=== PATIENT | female | born 1980 | race Two or more races ===

== ENCOUNTER 2023-12-30 11:46 | Emergency (ER) | payer MEDICAID, OTHER ==
[~2023-12-30] VITALS: Ht 157.5 cm; Wt 89.7 kg
[2023-12-30 13:03] LABS: Urine Bacteria FEW /hpf (None Seen); Urine Blood Negative /uL (Negative); Urine Clarity Clear (Clear); Urine Color Yellow (Yellow); Urine Mucus FEW (None Seen); Urine Protein, UAD Negative (Negative); Urine Specific Gravity 1.026 (1.001-1.035); Urine Urobilinogen Normal (Negative); Urine WBC 1 /hpf (0 - 5); Urine pH 5.5 (5.0-9.0)
[2023-12-30] MEDS: KETOROLAC TROMETH 60MG/2ML VIAL IM ONE (13:07)
[2023-12-30 14:10] LABS: Basophils # (auto) 0 10 ^3/uL (0-0.2); Basophils % (auto) 0.4 % (0.0-2.0); Eosinophils # (auto) 0.1 10 ^3/uL (0-0.8); Eosinophils % (auto) 1.1 % (0.0-7.0); Hematocrit 40.6 % (36.0-46.0); Hemoglobin 13.4 g/dL (12.2-16.2); Lymphocytes # (auto) 3.3 10 ^3/uL (0.4-5.4); Lymphocytes % (auto) 29.5 % (10.0-50.0); Mean Corpuscular Hemoglobin 29.6 pg (28.0-32.0); Mean Corpuscular Volume 89.6 fL (80.0-100.0); Monocytes # (auto) 0.9 10 ^3/uL (0-1.3); Monocytes % (auto) 7.7 % (0.0-12.0); Neutrophils # (auto) 6.8 10 ^3/uL (1.6-8.6); Neutrophils % (auto) 61.3 % (37.0-80.0); Platelet Count (auto) 387 10^3/uL (140-450); Red Blood Cells 4.53 10^6/uL (4.0-5.20); Red Cell Distribution Width 12.9 % (11.8-14.3); White Blood Cell 11.1 10^3/uL (4.4-10.8)
[2023-12-30 14:16] LABS: Chloride 106 mmol/L (98-107); Potassium 3.9 mmol/L (3.5-5.1); Sodium 138 mmol/L (136-145)
[2023-12-30 14:17] LABS: Anion Gap 6 (5-15); Calcium 9.5 mg/dL (8.7-10.4); Carbon Dioxide 26 mmol/L (20-31)
[2023-12-30 14:22] LABS: Blood Urea Nitrogen 8 mg/dL (9-23); Glucose 85 mg/dL (74-106)
[2023-12-30] MEDS ORDERED: IBUP-1454 PO (18:00)
[2023-12-30] MEDS ORDERED: ACET650T12 PO (18:00)
[2023-12-30] MEDS: ACETAMINOPHEN 500 MG TAB PO ONE (18:07)
[2023-12-30 18:11] VITALS: BP 126/87; PULSE 83; RESP 20; TEMP 98.2; O2SAT 98
[2023-12-31 14:06] LABS: Chlamydia Trachomatis, NAA Negative (Negative); Neisseria gonorrhoeae, NAA Negative (Negative)
== END 2023-12-30 18:13 | disposition home or self-care (01) ==
LOC: ER 11:46
DX: N83.202 Unspecified ovarian cyst, left side (principal); R10.2 Pelvic and perineal pain; D25.9 Leiomyoma of uterus, unspecified; I10 Essential (primary) hypertension; E11.9 Type 2 diabetes mellitus without complications
CPT/HCPCS: 36415; 76830; 76856; 80048; 81001; 84702; 85025; 87491; 87591; 96372; 99285; J1885

== ENCOUNTER 2024-01-01 15:32 | Inpatient (IN) | payer MEDICAID ==
[~2024-01-01] VITALS: Ht 157.5 cm; Wt 92.6 kg
[2024-01-01 01:00] VITALS: BP 105/71; PULSE 67; RESP 17; TEMP 97.8; O2SAT 96
[~2024-01-01 15:32] MED LIST: ACET650T12 PO; IBUP-1454 PO
--- NOTE | 2024-01-01 15:45 | ED.PDOC ---
History of Present Illness HPI Comments 43-year-old female came to the ER complaining of abdominal pain 11/09 for the past two days. She was seen in this ER on the for which she was discharged for possible urinary tract infection. Only pain medication was given. She later went to a hospital in [place] because her pain got worse. She does not remember her diagnosis that was given in [facility]. She comes back today stating that her pain is getting worse. No radiation of the pain. Denies nausea vomiting. History of hypertension diabetes. Denies any other symptoms. Time Seen by MD: 15:34 Reviewed Notes: Nurses Notes, Medications, Allergies Home Meds Active Scripts Ibuprofen (Ibuprofen) 600 Mg Tab, 1 TAB PO TID PRN for 5 Days, #15 TAB Prov:BLAINE STONE MD 12/30/23 Acetaminophen (Acetaminophen Er) 650 Mg Tab, 650 MG PO TIDP PRN for 5 Days, #15 TAB Prov:BLAINE STONE MD 12/30/23 Information Source: Patient Mode of Arrival: Ambulatory Severity: Moderate Timing: Days Duration: Since onset Past Medical History PAST MEDICAL HISTORY: DM, HTN Surgical History: Denies all surgeries PHD INTERNSHIP History: No Pertinent PHD INTERNSHIP History Family History Family History: Reviewed,noncontributory to illness, No family hx of Cancer, No family hx of DM, No family hx of Heart tala, No family hx of HTN, No family hx ofKidney tala, No family hx of Liver tala, No family hx of Lung tala, No family hx of Stroke Social History Smoker: Non-Smoker Alcohol: Denies ETOH Use Drugs: Denies Drug Use Lives In: Home Constitutional: denies: chills, diaphoresis, fatigue, fever, malaise, sweats, weakness, others EENTM: denies: blurred vision, double vision, ear bleeding, ear discharge, ear drainage, ear pain, ear ringing, eye pain, eye redness, hearing loss, mouth pain, mouth swelling, nasal discharge, nose bleeding, nose congestion, nose pain, photophobia, tearing, throat pain, throat swelling, voice changes, others Respiratory: denies: cough, hemoptysis, orthopnea, SOB at rest, shortness of breath, SOB with excertion, stridor, wheezing, others Cardiovascular: denies: chest pain, dizzy spells, diaphoresis, Dyspnea on exertion, edema, irregular heart beat, left arm pain, lightheadedness, palpitations, PND, syncope, others Gastrointestinal: reports: abdominal pain; denies: abdomen distended, blood streaked bowels, constipated, diarrhea, dysphagia, difficulty swallowing, hematemesis, melena, nausea, poor appetite, poor fluid intake, rectal bleeding, rectal pain, vomiting, others Genitourinary: denies: abnormal vagina bleeding, burning, dyspareunia, dysuria, flank pain, frequency, hematuria, incontinence, pain, , vagina discharge, urgency, others Neurological: denies: dizziness, fainting, headache, left sided numbness, left sided weakness, numbness, paresthesia, pre-existing deficit, right sided nu mbness, right sided weakness, seizure, speech problems, tingling, tremors, weakness, others Musculoskeletal: denies: back pain, gout, joint pain, joint swelling, muscle pain, muscle stiffness, neck pain, others Integumetry: denies: bruises, change in color, change in hair/nails, dryness, laceration, lesions, lumps, rash, wounds, others Allergic/Immunocompromised: denies: Difficulty Healing, Frequent Infections, Hives, Itching, others Hematologic/Lymphatic: denies: anemia, blood clots, easy bleeding, easy bruising, swollen glands, others Endocrine: denies: excessive hunger, excessive sweating, excessive thirst, excessive urination, flushing, intolerance to cold, intolerance to heat, unexplained weight gain, unexplained weight loss, others Psychiatric: denies: anxiety, bipolar disorder, depression, hopeless, panic disorder, schizophrenia, sleepless, suicidal, others Physical Exam General Appearance: Moderate Distress HEENT: Normal ENT Inspection, Pharynx Normal, TMs Normal Neck: Full Range of Motion, Non-Tender, Normal, Normal Inspection Respiratory: Chest Non-Tender, Lungs Clear, No Accessory Muscle Use, No Respiratory Distress, Normal Breath Sounds Cardiovascular: No Edema, No JVD, No Murmur, No Gallop, Normal Peripheral Pulses, Regular Rate/Rhythm Breast Exam: Deferred Gastrointestinal: No Organomegaly, No Pulsatile Mass, Normal Bowel Sounds, Soft Genitalia: Deferred Pelvic: Deferred Rectal: Deferred Extremities: No calf tenderness, Normal capillary refill, Normal inspection, Normal range of motion, Non-tender, No pedal edema Musculoskeletal : Apperance: Normal Neurologic: Alert, marine technician II-XII nml as Tested, No Motor Deficits, Normal Affect, Normal Mood, No Sensory Deficits Cerebellar Function: Normal Reflexes: Normal Skin: Dry, Normal Color, Warm Peripheral Pulses: 3+ Radial (R), 3+ Radial (L) Lymphatic: No Adenopathy Was a procedure done? Was a procedure done?: No Differential Dx Considerations may include: Colitis Electrolyte imbalance X-Ray, Labs, Meds, VS Patient alert. Complaining of abdominal pain. Vitals stable. Answering all questions. Abdomen is soft. Reviewed her previous visit. Her previous visit WBC was elevated. No sign of urinary tract infection at that time. Ultrasound was done which showed fibroid. Nothing to do for the fiber at the present moment. Denies bleeding. Her symptom at this time mainly is abdominal. Explained to the patient. Time of 1ST Reevaluation: 15:43 Reevaluation 1ST: Unchanged Patient Education/Counseling: Diagnosis, Treatment, Prognosis Family Education/Counseling: No Family Present Departure 1 Departure Time of Disposition: 15:44 Impression: Primary Impression: Nonspecific colitis Additional Impressions: Uterine fibroid Qualified Codes: D25.9 - Leiomyoma of uterus, unspecified Ovarian cyst Qualified Codes: N83.209 - Unspecified ovarian cyst, unspecified side Disposition: ADMITTED INPATIENT Admit to: Med Surg Condition: Guarded Critical Care Note Critical Care Time?: No Stability Stability form required: No Heart Score Heart Score: Heart Score Response (Comments) Value History N/A 0 EKG N/A 0 Age N/A 0 Risk Factors N/A 0 Troponin N/A 0 Total 0 AB MARIE MD Jan 01, 2024 15:45
[2024-01-01 15:54] LABS: Basophils # (auto) 0.1 10 ^3/uL (0-0.2); Basophils % (auto) 0.6 % (0.0-2.0); Eosinophils # (auto) 0.2 10 ^3/uL (0-0.8); Eosinophils % (auto) 1.7 % (0.0-7.0); Hematocrit 40.1 % (36.0-46.0); Hemoglobin 13.6 g/dL (12.2-16.2); Lymphocytes # (auto) 3.5 10 ^3/uL (0.4-5.4); Lymphocytes % (auto) 36.5 % (10.0-50.0); Mean Corpuscular Hemoglobin 30.4 pg (28.0-32.0); Mean Corpuscular Hgb Conc. 33.8 g/dL (32.0-36.0); Mean Corpuscular Volume 89.9 fL (80.0-100.0); Monocytes # (auto) 0.9 10 ^3/uL (0-1.3); Monocytes % (auto) 9.1 % (0.0-12.0); Neutrophils % (auto) 52.1 % (37.0-80.0); Nucleated Red Blood Cells % 0.1 %; Platelet Count (auto) 390 10^3/uL (140-450); Red Blood Cells 4.46 10^6/uL (4.0-5.20); Red Cell Distribution Width 12.9 % (11.8-14.3); White Blood Cell 9.6 10^3/uL (4.4-10.8)
[2024-01-01 16:03] LABS: Chloride 105 mmol/L (98-107); Potassium 4.5 mmol/L (3.5-5.1); Sodium 139 mmol/L (136-145)
[2024-01-01 16:04] LABS: Anion Gap 5 (5-15); Carbon Dioxide 29 mmol/L (20-31)
[2024-01-01 16:05] LABS: Calcium 10.1 mg/dL (8.7-10.4)
[2024-01-01 16:09] LABS: BUN/Creatinine Ratio 15.2 (10.0-20.0); Blood Urea Nitrogen 10 mg/dL (9-23); Glucose 127 mg/dL (74-106)
[2024-01-01 16:46] LABS: Urine Bacteria None Seen /hpf (None Seen)
[2024-01-01 16:52] LABS: Urine Blood Negative /uL (Negative); Urine Clarity Clear (Clear); Urine Color Light-Yellow (Yellow); Urine Protein, UAD Negative (Negative); Urine Specific Gravity 1.016 (1.001-1.035); Urine Urobilinogen Normal (Negative); Urine WBC 1 /hpf (0 - 5); Urine pH 6.5 (5.0-9.0)
--- NOTE | 2024-01-01 18:21 | DVH ---
Exam: CT CT AB PEL WO CON-NO ORAL OR IV History: colitis Comparison Study: None available at time of dictation. TECHNIQUE: Multidetector CT of the abdomen was performed from lung bases to pubic symphysis. Imaging was performed without IV contrast. Axial, coronal and sagittal multiplanar reformats were obtained fr om the axial data set by the technologist. Radiation Dose Information: CT Dose: CTDI volume is 18.95 mGy. Dose-length product is 1015.92 mGy*cm FINDINGS: Evaluation of solid organs is limited due to lack of intravenous contrast use. Findings: Lung Bases: No acute or significant lung base finding. Normal heart size. No pleural or pericardial effusion. Liver: The liver is enlarged, measuring 19.6 cm in craniocaudal dimension. No focal lesions. Gallbladder and Biliary Tree: Unremarkable Spleen: Unremarkable Pancreas: The pancreas is grossly normal in appearance. Adrenal Glands: Unremarkable Kidneys: Kidneys are grossly normal without calculi or hydronephrosis. Bladder: Grossly unremarkable for degree of distention. Bowel: The stomach is grossly normal in appearance. Small bowel and colon are normal in caliber and d istribution. The appendix is normal. Ascites: Absent Lymphadenopathy: No mesenteric, retroperitoneal or periportal lymphadenopathy. Abdominal Wall and Mesentery: Tiny fat containing umbilical hernia. Vasculature: The visualized abdominal aorta is normal in size and caliber. Evaluation of abdominal a nd pelvic vessels is limited due to lack of intravenous contrast. Pelvic Organs: Unremarkable Musculoskeletal: No aggressive focal bony lesions, acute fractures or dislocation. Chronic bilateral L5 pars defects. Soft tissues: Unremarkable IMPRESSION: 1. No acute abdominal or pelvic finding. 2. Chronic bilateral L5 pars defects. Radiation optimization: All CT scans at this facility use at least one of these dose optimization te chniques: automated exposure control mA and/or kV adjustment per patient size (includes targeted exa ms where dose is matched to clinical indication) or iterative reconstruction. HS:Y
[2024-01-01] MEDS: MORPHINE SULFATE 4 MG/ML SYR/VIAL IV ONE (20:00)
[2024-01-01] MEDS: ONDANSETRON HCL 4 MG/2 ML VIAL IV ONE (20:00)
[2024-01-01] MEDS ORDERED: ONDANSETRON HCL 4 MG/2 ML VIAL IV PRN (20:30)
[2024-01-01] MEDS ORDERED: NITROGLYCERIN 0.4 MG SL TAB SL PRN (20:30)
[2024-01-01] MEDS ORDERED: HYDROcodone-ACET 5/325MG TAB PO PRN (20:30)
[2024-01-01] MEDS ORDERED: MORPHINE SULFATE INJ 2 MG/ml SYRG IV PRN (20:30)
[2024-01-01] MEDS ORDERED: ACETAMINOPHEN 325 MG TAB PO PRN (20:30)
[2024-01-01] MEDS: SODIUM CHLORIDE 0.9% 1,000 ML IV SCH (20:48)
[2024-01-01] MEDS: SODIUM CHLOR 0.9% PF (SALINE LOCK) 10ML VIAL/SYR IV SCH (21:22)
--- NOTE | 2024-01-01 22:41 | DVHHPRES ---
History of Present Illness Resident Creating Document: BRENDA KAMARA RESIDENT History of Present Illness This is a 43-year-old female with past medical history of hypertension, type 2 diabetes mellitus, chronic back pain presented to the ED with a chief complaint of lower abdominal pain and chills for 2 days prior to this admission. According to the patient the pain is colicky in nature 09/08 started from lower abdomen and radiates up to the epigastrium and associated with chills and burning sensation in the urine. Her last menstrual period was one month ago urine test came back negative. Patient denies chest pain, shortness of breath, dizziness, diaphoresis, nausea, vomiting or any change in bowel and bladder habit. She also denies recent travel history or any sick contact. Cardiovascular: HTN Endocrine: Diabetes Past Medical History Hypertension, type 2 diabetes mellitus, chronic back pain Past Surgical History None Family History Significant history of colon cancer and coronary artery disease in the family Smoke: No ALCOHOL: none Drugs: None Lives: with Family Review of Systems Constitutional: Yes: Chills; No: Fever, Sweats, Weakness, Malaise, Other Eyes: No: Pain, Vision change, Conjunctivae inflammation, Eyelid inflammation, Other, Redness ENT: No: Ear pain, Ear discharge, Nose pain, Nose discharge, Nose congestion, Mouth pain, Mouth swelling, Throat pain, Throat swelling, Other Respiratory: No: Cough, Dry, Shortness of breath, SOB with excertion, Wheezing, Hemoptysis, Pleuritic Pain, Sputum, Wheezing, Other Cardiovascular: No: Chest Pain, Palpitations, Orthopnea, Paroxysmal Noc. Dyspnea, Edema, Lt Headedness, Other Gastrointestinal: Abdominal Pain; No: Nausea, Vomiting, Diarrhea, Constipation, Melena, Hematochezia, Other Genitourinary: Dysuria; No Frequency, No Incontinence, No Hematuria, No Retention, No Other Musculoskeletal: No: other, neck pain, shoulder pain, arm pain, back pain, hand pain, leg pain, foot pain Skin: No: Rash, Lesions, Jaundice, Bruising, Other Neurological: No: Weakness, Numbness, Incoordination, Change in speech, Confusion, Seizures, Other Allergies: Coded Allergies: NO KNOWN ALLERGIES (Unverified , 01/01/24) Medications Current Medications Medications Dose Ordered Sig/Scott Route Start Time Stop Time Status Last Admin Dose Admin Sodium Chloride 10 ml Q8HR IV 01/01/24 22:00 01/01/24 21:22 10 ML Sodium Chloride 1,000 ml @ 75 mls/hr [id number] IV 01/01/24 20:30 01/01/24 20:48 75 MLS/HR Acetaminophen 325 mg Q4HP PRN PO 01/01/24 20:30 Acetaminophen/ Hydrocodone Bitart 1 tab Q4HP PRN PO 01/01/24 20:30 Ondansetron HCl 4 mg Q4HP PRN IV 01/01/24 20:30 Morphine Sulfate 2 mg Q4HPRN PRN IV 01/01/24 20:30 Nitroglycerin 0.4 mg Q5MINP PRN SL 01/01/24 20:30 Morphine Sulfate 2 mg Q30M PRN IV 01/01/24 20:30 Exam Vital Signs Vital Signs Date Time Temp Pulse Resp B/P (MAP) Pulse Ox O2 Delivery O2 Flow Rate FiO2 01/01/24 20:46 98.6 73 16 121/72 (88) 98 98.6 01/01/24 20:04 Room Air 01/01/24 19:35 0 21 General Appearance: Alert, Oriented X3, Cooperative, mild distress HEENT: Atraumatic, PERRLA, EOMI, Mucous membr. moist/pink Respiratory: Clear to auscultation, Normal air movement Cardiovascular: Regular rate, Normal S1, Normal S2, No murmurs, Gallops Abdominal: Normal bowel sounds, Soft, No hepatospenomegaly, No masses (Is mildly tender in the umbilical region and the epigastrium) Extremities: Other (Abdomen is mildly tender in the umbilical region and the epigastrium) Skin: No rashes, No breakdown, No significant lesion Neuro: Normal gait, Normal speech, Strength at 5/5 X4 ext, Normal tone, Sensation intact Psych/Mental Status: Mental status NL, Mood NL Labs/Xrays Labs Test 01/01/24 21:00 01/01/24 16:00 01/01/24 15:45 Range/Units POC Glucose 99 70-106 mg/dl Urine Color Light-yellow Yellow Urine Clarity Clear Clear Urine pH 6.5 5.0-9.0 Urine Specific [place] 1.016 1.001-1.035 Urine Protein Negative Negative Urine Ketones Negative Negative Urine Blood Negative Negative /uL Urine Nitrite Negative Negative Urine Bilirubin Negative Negative Urine Urobilinogen Normal Negative mg/dL Urine Leukocyte Esterase Negative Negative /uL Urine RBC 1 0 - 4 /hpf Urine WBC 1 0 - 5 /hpf Urine Squamous Epithelial Cells Few <5 /hpf Urine Bacteria None seen None Seen /hpf Urine Glucose Normal Normal mg/dL White Blood Count 9.6 4.4-10.8 10^3/uL Red Blood Count 4.46 4.0-5.20 10^6/uL Hemoglobin 13.6 12.2-16.2 g/dL Hematocrit 40.1 36.0-46.0 % Mean Corpuscular Volume 89.9 80.0-100.0 fL Mean Corpuscular Hemoglobin 30.4 28.0-32.0 pg Mean Corpuscular Hemoglobin Concent 33.8 32.0-36.0 g/dL Red Cell Distribution Width 12.9 11.8-14.3 % Platelet Count 390 140-450 10^3/uL Mean Platelet Volume 6.2 L 6.9-10.8 fL Neutrophils (%) (Auto) 52.1 37.0-80.0 % Lymphocytes (%) (Auto) 36.5 10.0-50.0 % Monocytes (%) (Auto) 9.1 0.0-12.0 % Eosinophils (%) (Auto) 1.7 0.0-7.0 % Basophils (%) (Auto) 0.6 0.0-2.0 % Neutrophils # (Auto) 5.0 1.6-8.6 10 ^3/uL Lymphocytes # (Auto) 3.5 0.4-5.4 10 ^3/uL Monocytes # (Auto) 0.9 0-1.3 10 ^3/uL Eosinophils # (Auto) 0.2 0-0.8 10 ^3/uL Basophils # (Auto) 0.1 0-0.2 10 ^3/uL Nucleated Red Blood Cells 0.1 % Sodium Level 139 136-145 mmol/L Potassium Level 4.5 3.5-5.1 mmol/L Chloride Level 105 98-107 mmol/L Carbon Dioxide Level 29 20-31 mmol/L Anion Gap 5 5-15 Blood Urea Nitrogen 10 9-23 mg/dL Creatinine 0.66 0.550-1.02 mg/dL Glomerular Filtration Rate Calc 113 >90 mL/min BUN/Creatinine Ratio 15.2 10.0-20.0 Serum Glucose 127 H 74-106 mg/dL Calcium Level 10.1 8.7-10.4 mg/dL Assessment/Plan Assessment/Plan Assessment and plan: # Intractable abdominal pain - Clear liquid diet - CT abdomen pelvis revealed normal study - IV normal saline at 75 mL/hour - IV morphine 2 mg q.4 p.r.n. - IV ondansetron 4 mg q.4 p.r.n. # Abdominal pain likely due to submucosal fibroid/ Ovarian cyst - Pelvic ultrasound on 12/30/23 revealed heterogeneous uterus with hyperechoic mass measuring 1.2 cm which could represent a fibroid and 1.5 cm left ovarian cyst - Consulted OBGYN. # Type 2 diabetes mellitus - mild sliding scale of insulin # Chronic back pain - Mart 5/325 mg q.4 p.r.n. Goal of care discussed with the patient for more than 20 minutes full code Plan of treatment discussed with Dr. Mendez Plan discussed with: Patient, Other My Orders Orders - BRENDA KAMARA RESIDENT Procedure Category Date Status Time Admit ADMIT 01/01/24 Transmitted 20:30 Allergies CHRISTOPHER 01/01/24 In Process 20:30 Code Status CODE 01/01/24 Transmitted 20:30 Sodium Chloride Lock PHA 01/01/24 In Process (Saline Lock Ns) 22:00 Sodium Chloride 0.9% PHA 01/01/24 In Process 20:30 Oxygen Per Hour RT 01/01/24 Transmitted 20:30 Acetaminophen Tablet PHA 01/01/24 In Process (Tylenol Tablet) 20:30 Hydrocodone-Acet PHA 01/01/24 In Process 5/325mg Tab (Mart 20:30 Ondansetron Hcl PHA 01/01/24 In Process (Zofran) 20:30 Complete Blood Count LAB 01/02/24 Verified 04:00 Comprehensive LAB 01/02/24 Verified Metabolic Panel 04:00 Clear Liq Diet DIET 01/02/24 Transmitted Breakfast Morphine Sulfate PHA 01/01/24 In Process Injection 20:30 Nitroglycerin PHA 01/01/24 In Process Sublingual (Ntrostat 20:30 Morphine Sulfate PHA 01/01/24 In Process Injection 20:30 Oxygen By Nasal RT 01/01/24 Transmitted Cannula 20:30 Stat Ekg For Chest CHRISTOPHER 01/01/24 In Process Pain 20:30 Notify Of Changes CHRISTOPHER 01/01/24 In Process From Base 20:30 [employer]crete Products Machine Operator For [facility] 01/01/24 In Process 24 Hours 20:30 Emergency Dysrhythmia [facility] 01/01/24 In Process Protocol 20:30 Rhythm Strips Once [facility] 01/01/24 In Process Every Shift 20:30 Thyroid Stimulating LAB 01/01/24 Logged Hormone 21:56 Hemoglobin A1c LAB 01/01/24 Logged 21:56 Vitamin B12 LAB 01/01/24 Logged 21:56 Vitamin D, 25-Hydroxy LAB 01/01/24 Logged 21:56 Date of Service: Jan 01, 2024 Billing Provider: KIRILL MENDEZ MD Common Visit Codes: [id number] INP/OBS CARE (HIGH) BRENDA KAMARA RESIDENT Jan 01, 2024 22:41 KIRILL MENDEZ MD Jan 05, 2024 09:23
[2024-01-02] VITALS (8 sets, daily range): BP systolic 102–142; BP diastolic 60–78; PULSE 63–80; RESP 18–20; TEMP 97.4–98.7; O2SAT 95–97
[2024-01-02] MEDS: MORPHINE SULFATE INJ 2 MG/ml SYRG IV PRN (00:51)
[2024-01-02] MEDS ORDERED: DEXTROSE (50%) 50ML SYRG IV PRN (01:00)
[2024-01-02] MEDS ORDERED: AMLO1TAB22 PO (01:43)
[2024-01-02] MEDS ORDERED: SEMA2INJ3 SC (01:43)
[2024-01-02] MEDS ORDERED: LISI30TA8 PO (01:43)
[2024-01-02 04:34] LABS: Basophils # (auto) 0 10 ^3/uL (0-0.2); Basophils % (auto) 0.5 % (0.0-2.0); Eosinophils # (auto) 0.2 10 ^3/uL (0-0.8); Eosinophils % (auto) 3.2 % (0.0-7.0); Hematocrit 37.4 % (36.0-46.0); Hemoglobin 12.4 g/dL (12.2-16.2); Lymphocytes # (auto) 3.3 10 ^3/uL (0.4-5.4); Lymphocytes % (auto) 43.8 % (10.0-50.0); Mean Corpuscular Hemoglobin 29.9 pg (28.0-32.0); Mean Corpuscular Hgb Conc. 33.3 g/dL (32.0-36.0); Monocytes # (auto) 0.7 10 ^3/uL (0-1.3); Monocytes % (auto) 9.4 % (0.0-12.0); Neutrophils # (auto) 3.3 10 ^3/uL (1.6-8.6); Neutrophils % (auto) 43.1 % (37.0-80.0); Nucleated Red Blood Cells % 0.1 %; Platelet Count (auto) 357 10^3/uL (140-450); Red Blood Cells 4.15 10^6/uL (4.0-5.20); Red Cell Distribution Width 13.1 % (11.8-14.3); White Blood Cell 7.6 10^3/uL (4.4-10.8)
[2024-01-02 04:55] LABS: Alanine Aminotransferase 21 U/L (7-40); Alkaline Phosphatase 61 U/L (46-116); Anion Gap 6 (5-15); Aspartate Aminotransferase 14 U/L (13-40); BUN/Creatinine Ratio 11.7 (10.0-20.0); Blood Urea Nitrogen 7 mg/dL (9-23); Carbon Dioxide 26 mmol/L (20-31); Chloride 107 mmol/L (98-107); Glucose 93 mg/dL (74-106); Potassium 3.9 mmol/L (3.5-5.1); Sodium 139 mmol/L (136-145)
[2024-01-02 04:56] LABS: Bilirubin, Total 0.4 mg/dL (0.2-1.0); Total Protein 6.6 g/dL (5.7-8.2)
[2024-01-02] MEDS: ACCU-CHEK COMFORT CURVE STRIP VI SCH (06:15)
[2024-01-02] MEDS: InsuLIN REG 1unit/0.01ml Soln (100units/ml) SC SCH (06:16)
--- NOTE | 2024-01-02 09:53 | DVHINCON2 ---
DATE OF CONSULTATION: 01/02/2024 REASON FOR CONSULTATION: Fibroid uterus and pelvic pain. HISTORY OF PRESENT ILLNESS: The patient is a 43-year-old 3, para 3, admitted for lower abdominal pain for 2 days. The patient was seen in ER, diagnosed with UTI, was given antibiotic, then later the patient went to [facility] because the pain got worse. She was released from there, came back to our ER complaining of the same thing. Denies having any nausea. Currently, her pain is better. The patient has history of hypertension and diabetes too. Her last Pap and mammogram were recent. She sees a Primary Care in ____. Her ultrasound on 12/30/2023 revealed 10-week size uterus with a small 1.3 cm fibroid. PAST MEDICAL HISTORY: Hypertension, diabetes, and back pain. PAST SURGICAL HISTORY: None. SOCIAL HISTORY: None. OBSTETRIC AND GYNECOLOGIC HISTORY: Three normal vaginal deliveries. FAMILY HISTORY: Positive for hypertension. REVIEW OF SYSTEMS: CONSTITUTIONAL: Denies chills, malaise, sweats. RESPIRATORY: Denies cough, hemoptysis. CARDIOVASCULAR: Denies chest pain, dyspnea. GASTROINTESTINAL: Positive for abdominal pain. GENITOURINARY: No abnormal vaginal discharge or abnormal bleeding. NEUROLOGICAL: Denies dizziness, fainting. MUSCULOSKELETAL: Has some back pain. No joint swelling. ENDOCRINE: Denies excessive hunger, thirst. PSYCHIATRIC: Denies anxiety, bipolar. PHYSICAL EXAMINATION: VITAL SIGNS: Stable, afebrile. HEENT: Within normal limits. CARDIOVASCULAR: Regular rate and rhythm. LUNGS: Clear to auscultation. BREASTS: Symmetrical. No masses. ABDOMEN: Soft, nontender, and obese. PELVIC: External genitalia within normal. Vagina normal. Cervix grossly normal appearing. No cervical motion tenderness noted. Uterus 10 weeks' size. Adnexa nonpalpable. EXTREMITIES: No clubbing, cyanosis or edema. IMPRESSION: * Abdominal pain, suspect due to colitis or gastroenteritis. * Fibroid uterus appears to be asymptomatic. * Pelvic pain secondary to colitis or gastroenteritis. RECOMMENDATION: At this point, I do not see any need for any other gynecological intervention. The patient to follow up outpatient. DO GLADYS Mg TID: [id number] RECEIPT: [id number]
[2024-01-02] MEDS: PANTOPRAZOLE 40 MG/10 ML VIAL INJ IV ONE (15:20)
[2024-01-02] MEDS: cefTRIAXone 1GM/50ML D5W 50 ML IV ONE (15:20)
--- NOTE | 2024-01-02 16:41 | DVHPNRES ---
Progress Note Date Seen: Jan 02, 2024 Resident Creating Document: NAKIA DE LEON RESIDENT Medical Necessity Reason Pt with a Central, PICC or Fol: No Subjective Review of Systems Patient is 43 years old female with past medical history of diabetes mellitus type 2, hypertension, obesity, chronic back pain came with a complaint of abdominal pain that started 3 days before. As per patient patient has been having lower pain for last 3-4 days. Patient reported pain is constant in nature, crampy, 8 to 9/10, radiating to the both side of the lower abdomen, increased with eating, some relief with pain medication. Patient also endorsed some dysuria and urgency. Patient reports some vaginal discharge, scan T with some foul discharge. Patient denied any fever, nausea, vomiting, diarrhea, acute chest pain or shortness of breath, acute joint pain or swelling. Initial lab workup was reviewed. No leukocytosis. Urinalysis negative for UTI. CT abdomen revealed-No acute abdominal or pelvic finding. Chronic bilateral L5 pars defects. We will be ultrasound on 12/30/2023 revealed-Heterogeneous uterus seen with hyperechoic mass measuring 1.2 cm which could represent a fibroid. Consider MRI with IV contrast. 1.5 cm left ovarian cyst. Negative for MRSA screening. no Leukocytosis noted. On 12/30/2023 chlamydia trachomatis and Neisseria test was negative. PMH- diabetes mellitus type 2, hypertension, obesity, chronic back pain PSH-none Allergy- NKDA Personal History/ Social History- lives with her and 4 kids, denies smoking, no alcoholic, denies using drugs Patient was seen today at the bedside. Patient reports lower abdominal pain Cardiovascular- deny acute chest pain or shortness of breath or cough or palpitation Respiratory- denies cough or short of breath or wheezing Gastrointestinal- denies any rectal bleeding, nausea or vomiting Musculoskeletal-denies acute joint swelling or tenderness or redness Neurological- denies acute dysarthria, dysphagia, change in vision Psychiatry- denies depression or SI or HI Skin- denies acute rash or purpura Seen today for evaluation. Labs and chart reviewed. Patient complained of mid to lower abdominal pain. Patient's abdominal tenderness especially in the periumbilical left upper and lower resume. Ultrasound was nonsignificant for colitis or appendicitis. Patient is seen by senior health educator and recommended this pain is not due to fibroid uterus. Suspected patient might have colitis started ceftriaxone 1 g IV daily and metronidazole 500 mg t.i.d.. Patient also being covered for peptic ulcer disease or gastritis. Urinalysis negative for UTI. Objective vital signs Vital Sign Date Time Temp Pulse Resp B/P (MAP) Pulse Ox O2 Delivery O2 Flow Rate FiO2 01/02/24 12:45 98.5 71 20 107/70 (82) 95 98.5 01/02/24 08:00 Room Air* 0 21 medications Current Medications Medications Dose Ordered Sig/Scott Route Start Time Stop Time Status Last Admin Dose Admin Sodium Chloride 10 ml Q8HR IV 01/01/24 22:00 01/02/24 14:00 10 ML Sodium Chloride 1,000 ml @ 75 mls/hr [id number] IV 01/01/24 20:30 01/02/24 15:21 75 MLS/HR Acetaminophen 325 mg Q4HP PRN PO 01/01/24 20:30 Acetaminophen/ Hydrocodone Bitart 1 tab Q4HP PRN PO 01/01/24 20:30 Ondansetron HCl 4 mg Q4HP PRN IV 01/01/24 20:30 Morphine Sulfate 2 mg Q4HPRN PRN IV 01/01/24 20:30 01/02/24 00:51 2 MG Nitroglycerin 0.4 mg Q5MINP PRN SL 01/01/24 20:30 Morphine Sulfate 2 mg Q30M PRN IV 01/01/24 20:30 Diagnostic Test (Pha) 1 strip ACHS 01/02/24 07:00 01/02/24 11:30 1 STRIP Insulin Human Regular ACHS SC 01/02/24 07:00 Dextrose 50 ml UD PRN IV 01/02/24 01:00 Pantoprazole Sodium 40 mg DAILY IV 01/03/24 10:00 Ceftriaxone Sodium 50 ml @ 100 mls/hr DAILY@09 IV 01/03/24 09:00 Metronidazole 100 ml @ 100 mls/hr Q8HR IV 01/02/24 22:00 Examination General examination- HEENT- PEERLA, no acute nasal discharge Cardiovascular- S1-S2 audible, rate and rhythm regular, no murmur Respiratory- CTAB, no wheeze or rhonchi Gastrointestinal-nontender, bowel sound+. Nondistended Musculoskeletal-no acute joint swelling or tenderness or redness# Lower extremity- Neurological- cranial nerves intact, no acute dysarthria or dysphagia Psychiatry- denies depression or SI or HI Skin- no acute rash or purpura laboratory and microbiology Laboratory Tests 01/02/24 03:42 Test 01/02/24 03:42 Range/Units Serum Glucose 93 74-106 mg/dL Microbiology Date/Time Source Procedure Growth Status 01/02/24 01:02 Nose MRSA Screen - Final Complete Problem List/Assessment/Plan Problem List/Assessment/Plan Acute abdominal pain likely due to gastritis/colitis/cystitis -abdomen tender on palpation, diffuse -urinalysis negative for UTI -CT abdomen no significant finding -ordered ceftriaxone 1 g IV daily -ordered metronidazole 500 IV mg t.i.d. -patient is seen by senior health educator and recommended pain is not due to fibroid uterus. # dysuria, urgency -negative for UTI -we will continue conservative management # type 2 diabetes mellitus -diet controlled # hypertension -continue lisinopril 30 mg p.o. daily -continue amlodipine 10 mg p.o. daily -monitor BP # chronic back pain -mentioning pain medication as prescribed Goals of care/advance care planning; FULL CODE; discussed with the patient PUD prophylaxis: Pantoprazole DVT prophylaxis: Patient is ambulating Plan discussed with Dr. Galo,,, nursing staff, patient Total time spent on patient evaluation, chart review, assessment and plan, discussion discussion >20 minutes Plan discussed with: Patient Plan discussed with: Patient (RN), Other My Orders My Orders Orders - NAKIA DE LEON Procedure Category Date Status Time Pantoprazole PHA 01/03/24 In Process (Protonix) 10:00 Ceftriaxone 1gm/50ml PHA 01/03/24 In Process D5w (Rocephin) 09:00 Metronidazole PHA 01/02/24 In Process 500mg/100ml (Flagyl 22:00 Full Liq Diet DIET 01/02/24 Transmitted Dinner Communication Order ORDERS 01/02/24 Transmitted 15:00 Date of Service: Jan 02, 2024 Billing Provider: LUCÍA GALO MD Common Visit Codes: [id number] INP/OBS CARE(HIGH) Secondary Visit Codes: 98076-[id number] CARE PLAN 30 MINUTES NAKIA DE LEON Jan 02, 2024 16:41 LUCÍA GALO MD Jan 02, 2024 20:42
[2024-01-02] MEDS ORDERED: SEMAGLUTIDE 2 MG/3 ML SC SCH (17:00)
[2024-01-02] MEDS: metroNIDAZOLE 500MG/100ML 100 ML IV ONE (17:06)
[2024-01-02] MEDS: metroNIDAZOLE 500MG/100ML 100 ML IV SCH (21:09)
[2024-01-03 01:00] VITALS: BP 111/74; PULSE 60; RESP 20; TEMP 97.9; O2SAT 96
[2024-01-03 05:00] VITALS: BP 90/73; PULSE 71; RESP 20; TEMP 98.4; O2SAT 96
[2024-01-03 05:36] LABS: Basophils # (auto) 0 10 ^3/uL (0-0.2); Basophils % (auto) 0.4 % (0.0-2.0); Eosinophils # (auto) 0.2 10 ^3/uL (0-0.8); Eosinophils % (auto) 2.6 % (0.0-7.0); Hematocrit 36.5 % (36.0-46.0); Hemoglobin 12.4 g/dL (12.2-16.2); Lymphocytes # (auto) 2.2 10 ^3/uL (0.4-5.4); Lymphocytes % (auto) 31.8 % (10.0-50.0); Mean Corpuscular Hemoglobin 30.5 pg (28.0-32.0); Mean Corpuscular Volume 89.7 fL (80.0-100.0); Monocytes # (auto) 0.6 10 ^3/uL (0-1.3); Monocytes % (auto) 8.8 % (0.0-12.0); Neutrophils # (auto) 3.8 10 ^3/uL (1.6-8.6); Neutrophils % (auto) 56.4 % (37.0-80.0); Nucleated Red Blood Cells % 0.2 %; Platelet Count (auto) 340 10^3/uL (140-450); Red Blood Cells 4.08 10^6/uL (4.0-5.20); Red Cell Distribution Width 13.2 % (11.8-14.3); White Blood Cell 6.8 10^3/uL (4.4-10.8)
[2024-01-03 05:43] LABS: Chloride 108 mmol/L (98-107); Potassium 4.2 mmol/L (3.5-5.1); Sodium 140 mmol/L (136-145)
[2024-01-03 05:44] LABS: Anion Gap 6 (5-15); Carbon Dioxide 26 mmol/L (20-31)
[2024-01-03 05:45] LABS: Calcium 9.3 mg/dL (8.7-10.4)
[2024-01-03 05:49] LABS: BUN/Creatinine Ratio 7.8 (10.0-20.0); Blood Urea Nitrogen 5 mg/dL (9-23); Glucose 93 mg/dL (74-106)
[2024-01-03 09:00] VITALS: BP 104/64; PULSE 74; RESP 20; TEMP 98.6; O2SAT 100
[2024-01-03] MEDS: cefTRIAXone 1GM/50ML D5W 50 ML IV SCH (09:58)
[2024-01-03] MEDS: PANTOPRAZOLE 40 MG/10 ML VIAL INJ IV SCH (09:59)
[2024-01-03] MEDS: LISINOPRIL 20 MG TAB PO SCH (10:00)
[2024-01-03] MEDS: amLODIPine BESYLATE 5 MG TAB PO SCH (10:00)
[2024-01-03 13:25] VITALS: BP 117/80; PULSE 70; RESP 20; TEMP 98.1; O2SAT 98
[2024-01-03] MEDS ORDERED: PANT40T PO (14:09)
[2024-01-03] MEDS ORDERED: SUCR1TAB PO (14:09)
[2024-01-03 17:05] VITALS: BP 104/64; TEMP 36.7
[2024-01-03 17:14] VITALS: BP 128/83; PULSE 80; RESP 20; TEMP 99; O2SAT 98
--- NOTE | 2024-01-03 18:30 | DVHDSRES ---
Discharge Summary Date of Admission Resident Creating Document: MARTHA BEDOLLA RESIDENT Jan 01, 2024 at 20:30 Date of Discharge: Jan 03, 2024 Admitting Diagnosis Acute abdominal pain Wounds: No wounds present at this time Labs/Diagnostic Data: Laboratory Results Test 01/03/24 11:38 01/03/24 04:56 01/02/24 03:42 01/02/24 02:15 POC Glucose 95 mg/dl (70-106) White Blood Count 6.8 10^3/uL (4.4-10.8) Red Blood Count 4.08 10^6/uL (4.0-5.20) Hemoglobin 12.4 g/dL (12.2-16.2) Hematocrit 36.5 % (36.0-46.0) Mean Corpuscular Volume 89.7 fL (80.0-100.0) Mean Corpuscular Hemoglobin 30.5 pg (28.0-32.0) Mean Corpuscular Hemoglobin Concent 34.0 g/dL (32.0-36.0) Red Cell Distribution Width 13.2 % (11.8-14.3) Platelet Count 340 10^3/uL (140-450) Mean Platelet Volume 6.3 fL (6.9-10.8) Neutrophils (%) (Auto) 56.4 % (37.0-80.0) Lymphocytes (%) (Auto) 31.8 % (10.0-50.0) Monocytes (%) (Auto) 8.8 % (0.0-12.0) Eosinophils (%) (Auto) 2.6 % (0.0-7.0) Basophils (%) (Auto) 0.4 % (0.0-2.0) Neutrophils # (Auto) 3.8 10 ^3/uL (1.6-8.6) Lymphocytes # (Auto) 2.2 10 ^3/uL (0.4-5.4) Monocytes # (Auto) 0.6 10 ^3/uL (0-1.3) Eosinophils # (Auto) 0.2 10 ^3/uL (0-0.8) Basophils # (Auto) 0 10 ^3/uL (0-0.2) Nucleated Red Blood Cells 0.2 % Sodium Level 140 mmol/L (136-145) Potassium Level 4.2 mmol/L (3.5-5.1) Chloride Level 108 mmol/L (98-107) Carbon Dioxide Level 26 mmol/L (20-31) Anion Gap 6 (5-15) Blood Urea Nitrogen 5 mg/dL (9-23) Creatinine 0.64 mg/dL (0.550-1.02) Glomerular Filtration Rate Calc 114 mL/min (>90) BUN/Creatinine Ratio 7.8 (10.0-20.0) Serum Glucose 93 mg/dL (74-106) Calcium Level 9.3 mg/dL (8.7-10.4) Lipase 35 U/L (12-53) Hemoglobin A1c 5.7 % A1C (<5.7) Total Bilirubin 0.4 mg/dL (0.2-1.0) Aspartate Amino Transferase (AST) 14 U/L (13-40) Alanine Aminotransferase (ALT) 21 U/L (7-40) Alkaline Phosphatase 61 U/L (46-116) Total Protein 6.6 g/dL (5.7-8.2) Albumin 4.0 g/dL (3.2-4.8) Vitamin B12 Level 445 pg/mL (211-911) Vitamin D 25-Hydroxy 22.3 ng/mL (30.0-100) Thyroid Stimulating Hormone (TSH) 1.99 uIU/mL (0.55-4.78) Urine Test Negative (Negative) Test 01/01/24 16:00 Urine Color Light-yellow (Yellow) Urine Clarity Clear (Clear) Urine pH 6.5 (5.0-9.0) Urine Specific [place] 1.016 (1.001-1.035) Urine Protein Negative (Negative) Urine Ketones Negative (Negative) Urine Blood Negative /uL (Negative) Urine Nitrite Negative (Negative) Urine Bilirubin Negative (Negative) Urine Urobilinogen Normal mg/dL (Negative) Urine Leukocyte Esterase Negative /uL (Negative) Urine RBC 1 /hpf (0 - 4) Urine WBC 1 /hpf (0 - 5) Urine Squamous Epithelial Cells Few /hpf (<5) Urine Bacteria None seen /hpf (None Seen) Urine Glucose Normal mg/dL (Normal) Other Laboratory Tests 01/03/24 04:56 Brief Hx & Hospital Course: This is a 43 years old female with past medical history of diabetes mellitus type 2, hypertension, obesity, chronic back pain came with a complaint of abdominal pain that started 3 days before. As per patient patient has been having lower abdominal pain for last the last 3-4 days. Patient reported that the pain is constant in nature, crampy, 9/10 on the pain scale that radiates to both sides of the lower abdomen. The patient sates that pain increases with eating and reports some relief with pain medication. Patient also reported some dysuria and urgency. Patient denied any fever, nausea, vomiting, diarrhea, acute chest pain or shortness of breath, acute joint pain or swelling. Initial lab workup was reviewed. No leukocytosis. Urinalysis negative for UTI. CT abdomen revealed-No acute abdominal or pelvic finding, there were Chronic bilateral L5 pars defects. A pelvic ultrasound performed on 12/30/2023 revealed, Heterogeneous uterus seen with hyperechoic mass measuring 1.2 cm which could represent a fibroid. There was also a 1.5 cm left ovarian cyst. On 12/30/2023 chlamydia trachomatis and Neisseria test was negative. Patient was started on pantoprazole 40 mg IV q.d., ceftriaxone and metronidazole for possible colitis and NS at 75 cc/hour. Today, patient was evaluated at bedside and still reported very mild abdominal discomfort at the periumbilical area but states that has significantly improved compared to admission. We explained that due to characteristics of the pain that gets worse while eating it could be also in the setting of a peptic ulcer disease so we will discharge the patient on pantoprazole 40 mg p.o. q.d. and sucralfate 1 g t.i.d. for 15 days. Patient needs to follow up with her PCP in one week and likely get referral to GI for possible EGD as an outpatient. Patient agrees and understands the plan. ROS Constitutional: Denies weight loss, fever and chills. HEENT: Denies changes in vision and hearing. Respiratory: Denies shortness of breath and cough Cardiovascular: Denies chest discomfort or palpitations GI: Reports very mild abdominal discomfort at the periumbilical region. Denies nausea, vomiting and diarrhea. : Denies dysuria and urinary frequency. Musculoskeletal: Denies myalgias and joint pain Skin: Denies rash and pruritus. Neurological: Denies dizziness, headache, vision or hearing problems Physical Examination General: Patient alert and oriented in person, place and time. Patient following commands. HEENT: Normocephalic, atraumatic, moist mucous membranes Respiratory/pulmonary: Clear lungs bilaterally, no associated crackles or wheezes. Cardiovascular: Normal heart sounds S1 and S2 with no associated murmurs Abdomen: Abdomen nondistended, there is very mild pain discomfort at the periumbilical region upon deep palpation. no palpable masses. Extremities: There is no peripheral edema present at the lower extremities. Peripheral Pulses: 3+ Radial (R). 3+ Radial (L). 3+ Dorsalis pedis (R). 3+ Dorsalis pedis(L) Skin: No rashes or pruritus, there is no sacral edema present at this time. Neurological: Intact cranial nerves with no focal neurologic deficits Consults/Reason for consult N/A Operations or Procedures Exam: CT CT AB PEL WO CON-NO ORAL OR IV History: colitis Comparison Study: None available at time of dictation. TECHNIQUE: Multidetector CT of the abdomen was performed from lung bases to pubic symphysis. Imaging was performed without IV contrast. Axial, coronal and sagittal multiplanar reformats were obtained from the axial data set by the technologist. Radiation Dose Information: CT Dose: CTDI volume is 18.95 mGy. Dose-length product is 1015.92 mGy*cm FINDINGS: Evaluation of solid organs is limited due to lack of intravenous contrast use. Findings: Lung Bases: No acute or significant lung base finding. Normal heart size. No pleural or pericardial effusion. Liver: The liver is enlarged, measuring 19.6 cm in craniocaudal dimension. No focal lesions. Gallbladder and Biliary Tree: Unremarkable Spleen: Unremarkable Pancreas: The pancreas is grossly normal in appearance. Adrenal Glands: Unremarkable Kidneys: Kidneys are grossly normal without calculi or hydronephrosis. Bladder: Grossly unremarkable for degree of distention. Bowel: The stomach is grossly normal in appearance. Small bowel and colon are normal in caliber and distribution. The appendix is normal. Ascites: Absent Lymphadenopathy: No mesenteric, retroperitoneal or periportal lymphadenopathy. Abdominal Wall and Mesentery: Tiny fat containing umbilical hernia. Vasculature: The visualized abdominal aorta is normal in size and caliber. Evaluation of abdominal and pelvic vessels is limited due to lack of intravenous contrast. Pelvic Organs: Unremarkable Musculoskeletal: No aggressive focal bony lesions, acute fractures or dislocation. Chronic bilateral L5 pars defects. Soft tissues: Unremarkable IMPRESSION: 1. No acute abdominal or pelvic finding. 2. Chronic bilateral L5 pars defects. Condition at Discharge: Stable Final Diagnosis/Problems List Acute abdominal pain likely due to gastritis Possible colitis Ruled out UTI type 2 diabetes mellitus hypertension Discharge Disposition: Home Discharge Instruct/Medications Diet: Regular Activity: No Restrictions, As Tolerated Follow Up/Referral: F/U with PCP in 1 week Medications: pantoprazole 40mg QD po for 20 days Sucralfate 1 gr TID for 15 days Discharge Statement: "Patient was advised to return to the ER or call 911 if any headaches, dizziness, shortness of breath, chest pain, abdominal pain, bleeding, fevers, or worsening of medical condition. Patient was counseled about treatment plan, medications, possible side effects, patientverbalized understanding. All questions were answered to the best of my ability. This discharge took greater then 30 minutes in planning, reviewing documentation, counseling the patient, and discussing with other team members." ASSESSMENT ASSESSMENT Assessment Acute abdominal pain likely due to gastritis Possible colitis Ruled out UTI type 2 diabetes mellitus hypertension Date of Service: Jan 03, 2024 Billing Provider: LUCÍA CHEATHAM MD Common Visit Codes: 03777-VDI/OBS DISCH DAY >30min MARTHA BEDOLLA RESIDENT Jan 03, 2024 18:30 LUCÍA CHEATHAM MD Jan 04, 2024 21:55
== END 2024-01-03 18:43 | disposition home or self-care (01) | DRG 241 ==
LOC: ER 15:32 → OVERFLOW 20:30 → WEST WING 23:41
PROVIDERS: ADMIT Internal Medicine Geriatric Medicine; ATTEND Internal Medicine Geriatric Medicine
DX: K29.70 Gastritis, unspecified, without bleeding (principal); D25.9 Leiomyoma of uterus, unspecified; K52.9 Noninfective gastroenteritis and colitis, unspecified; I10 Essential (primary) hypertension; E11.9 Type 2 diabetes mellitus without complications; G89.29 Other chronic pain; N83.292 Other ovarian cyst, left side; Z82.49 Family history of ischemic heart disease and other diseases of the circulatory system; Z79.4 Long term (current) use of insulin; Z79.899 Other long term (current) drug therapy
CPT/HCPCS: 36415; 74176; 80048; 80053; 81001; 81025; 82306; 82607; 82962; 83036; 83690; 84443; 85025; 87081; G0378; J2405; J2470; J3490

== ENCOUNTER 2024-10-29 22:27 | Emergency (ER) | payer MEDICAID ==
[~2024-10-29] VITALS: Ht 157.5 cm; Wt 97.0 kg
[~2024-10-29 22:27] MED LIST changes: +AMLO1TAB22 PO; +LISI30TA8 PO; +PANT40T PO; +SEMA2INJ3 SC; +SUCR1TAB PO
--- NOTE | 2024-10-29 23:02 | ED.PDOC ---
GI ASSESSMENT HPI Comments 45-year-old female who came to ER for abdominal pain. Patient states she has been having episodes of diffuse abdominal pain for the past few months. Pain usually occurs after meals. States she noted that her abdomen has gradually been distended, in associated nausea. She denies being . She denies any history of abdominal surgeries. Chief Complaint: Abdominal Pain Time Seen by MD: 23:02 Reviewed Notes: Nurses Notes Allergies: Coded Allergies: NO KNOWN ALLERGIES (Unverified , 01/01/24) Home Meds Active Scripts Ondansetron HCl (Ondansetron Hydrochloride) 8 Mg Tab, 8 MG PO Q6HP PRN, #30 TAB Prov:FER JAMA MD 10/30/24 Famotidine (PEPCID TABLET) 20 Mg Tb, 1 TAB PO BID PRN, #60 TAB 5 Refills Prov:FER JAMA MD 10/30/24 Sucralfate (Sucralfate) 1 Gm Tab, 1 GM PO TID for 15 Days, #45 TAB Prov:MARTHA BEDOLLA RESIDENT 01/03/24 Pantoprazole Sodium Sesquihydr (Pantoprazole Sodium) 40 Mg Tab, 40 MG PO DAILY for 20 Days, #20 TAB Prov:MARTHA BEDOLLA RESIDENT 01/03/24 Ibuprofen (Ibuprofen) 600 Mg Tab, 1 TAB PO TID PRN for 5 Days, #15 TAB Prov:BLAINE STONE MD 12/30/23 Acetaminophen (Acetaminophen Er) 650 Mg Tab, 650 MG PO TIDP PRN for 5 Days, #15 TAB Prov:BLAINE STONE MD 12/30/23 Reported Medications Semaglutide (Ozempic) 2 Mg/3 Ml Inj, 0.5 MG SC every thursday, INJ 01/02/24 Amlodipine Besylate (Amlodipine Besylate) 5 Mg Tab, 10 MG PO DAILY, MG 01/02/24 Lisinopril (Lisinopril) 30 Mg Tab, 30 MG PO DAILY, MG 01/02/24 Information Source: Patient Mode of Arrival: Ambulatory Timing: Months Duration: Intermittent Quality: Aching Vomitus: None Stool: Normal Severity: Moderate Recent: None Recent Hx of: Diabetes Pain Location: Diffuse Modifying Factors: Nothing Associated sign and symptoms: Nausea, Abdominal Pain, Other (Abdominal distention) Past Medical History PAST MEDICAL HISTORY: DM Surgical History: Denies all surgeries FITNESS LEADER History: No Pertinent FITNESS LEADER History Family History Family History: Reviewed,noncontributory to illness, No family hx of Cancer, No family hx of DM, No family hx of Heart tala, No family hx of HTN, No family hx ofKidney tala, No family hx of Liver tala, No family hx of Lung tala, No family hx of Stroke Social History Smoker: Non-Smoker Alcohol: Denies ETOH Use Drugs: Denies Drug Use Lives In: Home Constitutional: denies: chills, diaphoresis, fatigue, fever, malaise, sweats, weakness, others EENTM: denies: blurred vision, double vision, ear bleeding, ear discharge, ear drainage, ear pain, ear ringing, eye pain, eye redness, hearing loss, mouth pain, mouth swelling, nasal discharge, nose bleeding, nose congestion, nose pain, photophobia, tearing, throat pain, throat swelling, voice changes, others Respiratory: denies: cough, hemoptysis, orthopnea, SOB at rest, shortness of breath, SOB with excertion, stridor, wheezing, others Cardiovascular: denies: chest pain, dizzy spells, diaphoresis, Dyspnea on exertion, edema, irregular heart beat, left arm pain, lightheadedness, palpitations, PND, syncope, others Gastrointestinal: reports: abdomen distended, abdominal pain, nausea; denies: blood streaked bowels, constipated, diarrhea, dysphagia, difficulty swallowing, hematemesis, melena, poor appetite, poor fluid intake, rectal bleeding, rectal pain, vomiting, others Genitourinary: denies: abnormal vagina bleeding, burning, dyspareunia, dysuria, flank pain, frequency, hematuria, incontinence, pain, , vagina discharge, urgency, others Neurological: denies: dizziness, fainting, headache, left sided numbness, left sided weakness, numbness, paresthesia, pre-existing deficit, right sided numbness, right sided weakness, seizure, speech problems, tingling, tremors, weakness, others Musculoskeletal: denies: back pain, gout, joint pain, joint swelling, muscle pain, muscle stiffness, neck pain, others Integumetry: denies: bruises, change in color, change in hair/nails, dryness, laceration, lesions, lumps, rash, wounds, others Allergic/Immunocompromised: denies: Difficulty Healing, Frequent Infections, Hi ves, Itching, others Hematologic/Lymphatic: denies: anemia, blood clots, easy bleeding, easy bruising, swollen glands, others Endocrine: denies: excessive hunger, excessive sweating, excessive thirst, excessive urination, flushing, intolerance to cold, intolerance to heat, unexplained weight gain, unexplained weight loss, others Psychiatric: denies: anxiety, bipolar disorder, depression, hopeless, panic disorder, schizophrenia, sleepless, suicidal, others Physical Exam General Appearance: No Apparent Distress, Normal HEENT: Normal ENT Inspection, Pharynx Normal, TMs Normal Neck: Full Range of Motion, Non-Tender, Normal, Normal Inspection Respiratory: Chest Non-Tender, Lungs Clear, No Accessory Muscle Use, No Respiratory Distress, Normal Breath Sounds Cardiovascular: No Edema, No JVD, No Murmur, No Gallop, Normal Peripheral P ulses, Regular Rate/Rhythm Breast Exam: Deferred Gastrointestinal: No Organomegaly, Non Tender, No Pulsatile Mass, Normal Bowel Sounds, Soft Genitalia: Deferred Pelvic: Deferred Rectal: Deferred Extremities: No calf tenderness, Normal capillary refill, Normal inspection, Normal range of motion, Non-tender, No pedal edema Musculoskeletal : Apperance: Normal Neurologic: Alert, automotive heavy mechanic II-XII nml as Tested, No Motor Deficits, Normal Affect, Normal Mood, No Sensory Deficits Cerebellar Function: Normal Reflexes: Normal Skin: Dry, Normal Color, Warm Lymphatic: No Adenopathy Was a procedure done? Was a procedure done?: No GI differential Dx Differential Diagnosis: Constipation, Diverticular disease, Gastritis/PUD, Gastroenteritis, GI hemorrhage, Hernia, Inflammatory BD, Pancreatitis, UTI, Diabetes/ DKA X-Ray, Labs, Meds, VS Vital Signs Date Time Temp Pulse Resp B/P (MAP) Pulse Ox O2 Delivery O2 Flow Rate FiO2 10/30/24 01:22 98.4 75 18 127/82 (97) 99 98.4 10/29/24 22:30 98.5 81 16 139/93 97 98.5 Lab Test 10/29/24 23:02 Range/Units White Blood Count 9.5 4.4-10.8 10^3/uL Red Blood Count 4.47 4.0-5.20 10^6/uL Hemoglobin 13.5 12.2-16.2 g/dL Hematocrit 39.7 36.0-46.0 % Mean Corpuscular Volume 88.7 80.0-100.0 fL Mean Corpuscular Hemoglobin 30.2 28.0-32.0 pg Mean Corpuscular Hemoglobin Concent 34.0 32.0-36.0 g/dL Red Cell Distribution Width 13.4 11.8-14.3 % Platelet Count 370 140-450 10^3/uL Mean Platelet Volume 6.5 L 6.9-10.8 fL Neutrophils (%) (Auto) 45.5 37.0-80.0 % Lymphocytes (%) (Auto) 40.8 10.0-50.0 % Monocytes (%) (Auto) 10.8 0.0-12.0 % Eosinophils (%) (Auto) 2.2 0.0-7.0 % Basophils (%) (Auto) 0.7 0.0-2.0 % Neutrophils # (Auto) 4.3 1.6-8.6 10 ^3/uL Lymphocytes # (Auto) 3.9 0.4-5.4 10 ^3/uL Monocytes # (Auto) 1.0 0-1.3 10 ^3/uL Eosinophils # (Auto) 0.2 0-0.8 10 ^3/uL Basophils # (Auto) 0.1 0-0.2 10 ^3/uL Nucleated Red Blood Cells 0.0 % Sodium Level 138 136-145 mmol/L Potassium Level 4.1 3.5-5.1 mmol/L Chloride Level 103 98-107 mmol/L Carbon Dioxide Level 27 20-31 mmol/L Anion Gap 8 5-15 Blood Urea Nitrogen 12 9-23 mg/dL Creatinine 0.76 0.550-1.02 mg/dL Glomerular Filtration Rate Calc 100 >90 mL/min BUN/Creatinine Ratio 15.8 10.0-20.0 Serum Glucose 187 H 74-106 mg/dL Calcium Level 9.2 8.7-10.4 mg/dL Total Bilirubin 0.5 0.2-1.0 mg/dL Aspartate Amino Transferase (AST) 19 13-40 U/L Alanine Aminotransferase (ALT) 27 7-40 U/L Alkaline Phosphatase 98 46-116 U/L Total Protein 7.4 5.7-8.2 g/dL Albumin 4.6 3.2-4.8 g/dL Lipase 50 12-53 U/L Beta HCG, Quantitative < 0.0 L 1.5-4.2 mIU/mL PROCEDURE(s): GBUS - GALLBLADDER REASON: RUQ pain ORDER NUMBER(s): [id number], ACCESSION NUMBER(s): [id number] INDICATION: RUQ pain TECHNIQUE: Multiple real-time sonographic images of the abdomen were obtained. COMPARISON: None FINDINGS: Liver is enlarged measuring 19.3 cm and demonstrates diffuse increased echogeni city consistent with fatty infiltration. No focal lesion is identified in the liver. No evidence of intrahepatic or extrahepatic biliary ductal dilatation with the common bile duct measuring 3.5 mm. Gallbladder is contracted. Gallbladder wall thickness is within normal limits measuring less than 2 mm. No pericholecystic fluid. Sonographic Dow's sign was reportedly negative. Panc reas is largely obscured by overlying bowel gas. Right kidney appears unremarkable with no hydronephrosis. No free fluid noted. IMPRESSION: Hepatomegaly and fatty infiltration of the liver. Contracted gallbladder. No evidence of acute cholecystitis. Time of 1ST Reevaluation: 22:54 Reevaluation 1ST: Unchanged Patient Education/Counseling: Diagnosis, Treatment Family Education/Counseling: Diagnosis, Treatment SEPSIS Sepsis Screen Date sepsis recognized/suspect: Oct 29, 2024 Time Sepsis recognized/suspect: 2234 Recent Procedure: No On Antibiotic Therapy: No Respiratory Rate >20: No Heart Rate >90: No Temp<36 C (96.8 F) or >38.3 C: No SBP <90 or MAP <65 mmHG: No New Acute Mental Status Change: No Is the patient on CPAP, BIPAP,: No Physician Orders Urinalysis (10/29/24 22:51) Test, Urine (10/29/24 22:51) Gallbladder (10/29/24 22:51) Vital Signs Date Time Temp Pulse Resp B/P (MAP) Pulse Ox O2 Delivery O2 Flow Rate FiO2 10/30/24 01:22 98.4 75 18 127/82 (97) 99 98.4 10/29/24 22:30 98.5 81 16 139/93 97 98.5 Laboratory Tests Test 10/29/24 23:02 White Blood Count 9.5 10^3/uL (4.4-10.8) Departure 1 Departure Time of Disposition: Impression: Primary Impression: Abdominal cramping Additional Impression: Ovarian cyst Disposition: HOME / SELF CARE / HOMELESS Condition: Stable e-Prescriptions Ondansetron HCl (Ondansetron Hydrochloride) 8 Mg Tab 8 MG PO Q6HP PRN, #30 TAB Prov: FER JAMA MD 10/30/24 Famotidine (PEPCID TABLET) 20 Mg Tb 1 TAB PO BID PRN, #60 TAB 5 Refills Prov: FER JAMA MD 10/30/24 Discharged With: Self Critical Care Note Critical Care Time?: No Stability Stability form required: No Heart Score Heart Score: Heart Score Response (Comments) Value History N/A 0 EKG N/A 0 Age N/A 0 Risk Factors N/A 0 Troponin N/A 0 Total 0 I personally scribed for FER JAMA MD ([email or web address]) on 10/29/24 at 23:02. Electronically submitted by Ishaan Price ([facility] I personally scribed for FER JAMA MD ([email or web address]) on 10/29/24 at 23:44. Electronically submitted by Ishaan Price ([facility] FER JAMA MD Oct 29, 2024 23:02
[2024-10-29 23:35] LABS: Hematocrit 39.7 % (36.0-46.0); Hemoglobin 13.5 g/dL (12.2-16.2); Mean Corpuscular Hemoglobin 30.2 pg (28.0-32.0); Mean Corpuscular Volume 88.7 fL (80.0-100.0); Nucleated Red Blood Cells % 0.0 %
--- NOTE | 2024-10-29 23:39 | DVH ---
INDICATION: RUQ pain TECHNIQUE: Multiple real-time sonographic images of the abdomen were obtained. COMPARISON: None FINDINGS: Liver is enlarged measuring 19.3 cm and demonstrates diffuse increased echogenicity consistent with f atty infiltration. No focal lesion is identified in the liver. No evidence of intrahepatic or extrahe patic biliary ductal dilatation with the common bile duct measuring 3.5 mm. Gallbladder is contracted . Gallbladder wall thickness is within normal limits measuring less than 2 mm. No pericholecystic flu id. Sonographic Dow's sign was reportedly negative. Pancreas is largely obscured by overlying alfie l gas. Right kidney appears unremarkable with no hydronephrosis. No free fluid noted. IMPRESSION: Hepatomegaly and fatty infiltration of the liver. Contracted gallbladder. No evidence of acute cholecystitis.
[2024-10-29 23:41] LABS: Alanine Aminotransferase 27 U/L (7-40); Albumin 4.6 g/dL (3.2-4.8); Alkaline Phosphatase 98 U/L (46-116); Anion Gap 8 (5-15); BUN/Creatinine Ratio 15.8 (10.0-20.0); Bilirubin, Total 0.5 mg/dL (0.2-1.0); Blood Urea Nitrogen 12 mg/dL (9-23); Calcium 9.2 mg/dL (8.7-10.4); Carbon Dioxide 27 mmol/L (20-31); Chloride 103 mmol/L (98-107); Lipase 50 U/L (12-53); Potassium 4.1 mmol/L (3.5-5.1); Sodium 138 mmol/L (136-145); Total Protein 7.4 g/dL (5.7-8.2)
[2024-10-29 23:50] LABS: Glucose 187 mg/dL (74-106)
[2024-10-30] MEDS ORDERED: FAMO20TA10 PO (00:52)
[2024-10-30] MEDS ORDERED: ONDA-180 PO (00:52)
[2024-10-30 01:22] VITALS: BP 127/82; PULSE 75; RESP 18; TEMP 98.4; O2SAT 99
[2024-10-30] MEDS: HYDROcodone-ACET 10/325MG TAB PO ONE (01:30)
== END 2024-10-30 02:21 | disposition home or self-care (01) ==
LOC: ER 22:27
DX: N83.209 Unspecified ovarian cyst, unspecified side (principal); R10.2 Pelvic and perineal pain; Z79.899 Other long term (current) drug therapy; E11.9 Type 2 diabetes mellitus without complications
CPT/HCPCS: 36415; 76705; 80053; 83690; 84702; 85025